=== PATIENT | female | born 1960 | race Asian ===

== ENCOUNTER 2019-03-30 08:36 | Day surgery (SDC) | payer OTHER ==
[~2019-03-30] VITALS: Ht 162.6 cm; Wt 94.3 kg
== END 2019-03-30 10:49 | disposition home or self-care (01) ==
LOC: OR 08:36
PROC: 3E0R33Z Introduction of Anti-inflammatory into Spinal Canal, Percutaneous Approach (ICD-10-PCS; principal; 2019-03-30)
PROC: B01BYZZ Fluoroscopy of Spinal Cord using Other Contrast (ICD-10-PCS; 2019-03-30)
DX: M50.123 Cervical disc disorder at C6-C7 level with radiculopathy (principal)
CPT/HCPCS: J1020

== ENCOUNTER 2019-04-27 06:43 | Day surgery (SDC) | payer OTHER ==
[~2019-04-27] VITALS: Ht 162.6 cm; Wt 97.1 kg
== END 2019-04-27 09:03 | disposition home or self-care (01) ==
LOC: OR 06:43
PROC: 3E0R33Z Introduction of Anti-inflammatory into Spinal Canal, Percutaneous Approach (ICD-10-PCS; principal; 2019-04-27)
PROC: B01BYZZ Fluoroscopy of Spinal Cord using Other Contrast (ICD-10-PCS; 2019-04-27)
DX: M50.123 Cervical disc disorder at C6-C7 level with radiculopathy (principal)
CPT/HCPCS: J1020